=== PATIENT | male | born 1950 | race Caucasian/White ===

== ENCOUNTER → 2024-09-23 | Outpatient (CLI) | payer MEDICARE ==
--- NOTE | 2024-09-23 12:26 | US ---
EXAMINATION TYPE: US kidneys/renal and bladder DATE OF EXAM: 09/23/2024 COMPARISON: NONE CLINICAL INDICATION: Male, 74 years old with history of R31.1 BENIGN ESSENTIAL MICROSCOPIC HEMATURIA; microscopic hematuria TECHNIQUE: Grayscale imaging of the bilateral kidneys and urinary bladder: FINDINGS: EXAM MEASUREMENTS: Right Kidney: 12.1 x 5.1 x 5.8 cm Left Kidney: 10.5 x 5.0 x 5.8 cm Right Kidney: No hydronephrosis or masses seen Left Kidney: No hydronephrosis or masses seen Bladder: No gross abnormality though bulky prostate gland impresses into the base of the bladder. Bilateral Jets seen: No IMPRESSION: 1. No hydronephrosis. 2. Prostatomegaly with bulky tissue impressing into the base of the bladder. Correlate with patient's symptoms and PSA values. [facility], Workstation: [email or web address], 09/23/2024 12:23 PM
== END | disposition home or self-care (01) ==
LOC: RADUSWWP 10:27
PROVIDERS: ATTEND Urology
DX: N40.0 Benign prostatic hyperplasia without lower urinary tract symptoms (principal); R31.1 Benign essential microscopic hematuria
CPT/HCPCS: 76770

== ENCOUNTER 2025-04-10 15:33 | Day surgery (SDC) | payer MEDICARE ==
[2025-04-10] MEDS: SODIUM CHLORIDE 0.9% 500 ML 500 ML IV ONE (07:38)
[~2025-04-10 15:33] MED LIST: SODIUM CHLORIDE 0.9% 1,000 ML IV SCH; ceFAZolin 1 GM in SODIUM CHLORIDE 0.9% IRRIG BTL 250 ML IRRIGATION PRN
[2025-04-10 17:06] VITALS: BP 120/60; PULSE 57; RESP 16; TEMP 98.1
[2025-04-10] MEDS: LIDOCAINE 1% INJ 10MG/ML (20 ML MDV) SQ ONE (17:55)
--- NOTE | 2025-04-10 18:14 | P.EPPROC ---
- EP Procedure Note Electrophysiology Procedure Note: Loop monitor implant Primary physicians: Dr. Patricia Mds Manager: Dr. Ruiz Indication: A-fib detection and management Patient was brought to the EP lab in a fasting state. Written informed consent was obtained prior to the procedure. The left pectoral area was prepped and draped per protocol. Intravenous antibiotic was administered preoperatively. A subcutaneous Loop monitor was implanted successfully and the wound was closed per protocol. The device was programmed to detect significant bailee- arrhythmic and tachy-arrhythmic events, per protocol. Device and programming details: A-fib management protocol
== END 2025-04-10 18:31 | disposition home or self-care (01) ==
LOC: CATHEP 15:33
PROVIDERS: ATTEND Internal Medicine Clinical Cardiac Electrophysiology
DX: I48.0 Paroxysmal atrial fibrillation (principal); Z79.01 Long term (current) use of anticoagulants; Z79.899 Other long term (current) drug therapy
CPT/HCPCS: 33285; C1764; J0690; J2003